=== PATIENT | female | born 1985 | race Two or more races ===

== ENCOUNTER → 2018-03-08 | Outpatient (CLI) | payer MEDICAID ==
--- NOTE | 2018-03-08 16:18 | RADIOLOGY REPORT (SQ) ---
EXAM DESCRIPTION: U/S [id number] TRNABD 1GES W/ODOP COMPLETED DATE/TIME: 03/08/2018 3:57 pm REASON FOR STUDY: Z34.81 ENCOUNTER FOR SUPRVSN OF NORMAL , FIRST TRIMESTER Z34.81 ENCOUNTE R FOR SUPRVSN OF NORMAL , FIRST TRIM COMPARISON: None. TECHNIQUE: Transabdominal static and realtime grayscale images acquired of the pelvis. Additional se lected spectral and color Doppler images recorded. All images stored on PACs. bHCG: Not applicable. CLINICAL DATES: 10 weeks 0 days LIMITATIONS: None. FINDINGS: FETUS: Single Living intrauterine . ULTRASOUND EGA: 11 weeks 1 day ULTRASOUND SHERIF: 09/26/2018 EFW: Not applicable less than 20 weeks. CRL: 4.2 cm FHR: 152 beats per minute. SURVEY: Too early to assess. AMNIOTIC FLUID: Adequate amount. PLACENTA: Not yet developed due to early gestation. SUBCHORIONIC BLEED: No SIZE OF BLEED: Not applicable. UTERUS: No masses or anomalies. 12.8 x 7.9 x 6.4 cm. CERVICAL LENGTH: Not measured. Closed. RIGHT ADNEXA: Normal ovary with normal vascular flow. 3.7 x 2.3 x 2.1 cm. No adnexal free fluid. No adnexal masses. LEFT ADNEXA: Ovary not seen. No adnexal free fluid. No adnexal masses. FREE FLUID: None. OTHER: No other significant finding. IMPRESSION: LIVING INTRAUTERINE . EGA 11 weeks 1 day she area Trimester of : First - 0 to 13 weeks. TECHNICAL DOCUMENTATION: JOB ID: [id number] [place] [employer]- All Rights Reserved rev-09/09 Reading location - IP/workstation name: [email or web address]
== END ==
LOC: RAD 15:30
PROVIDERS: ATTEND Nurse Practitioner
DX: Z34.81 Encounter for supervision of other normal pregnancy, first trimester (principal)
CPT/HCPCS: 76801

== ENCOUNTER 2018-09-05 18:43 | Inpatient (IN) | payer MEDICAID ==
[2018-09-05] MEDS ORDERED: RINGERS SOLUTION,LACTATED 1,000 ML IV PRN (19:09)
[2018-09-05] MEDS ORDERED: RINGERS SOLUTION,LACTATED 1,000 ML IV ONE (19:09)
[2018-09-05 19:29] LABS: ABSOLUTE EOSINOPHILS # (AUTO) 0.1 10^3/uL (0.0-0.6); ABSOLUTE LYMPHOCYTES (AUTO) 1.5 10^3/uL (0.5-4.7); ABSOLUTE MONOCYTES (AUTO) 0.9 10^3/uL (0.1-1.4); ABSOLUTE NEUT (AUTO) 10.9 10^3/uL (1.7-8.2); BASOPHILS % (AUTO) 0.3 % (0-2); EOSINOPHILS % (AUTO) 1.1 % (0-6); HEMATOCRIT 34.9 % (36.0-47.0); HEMOGLOBIN 11.7 g/dL (12.0-15.5); LYMPHOCYTES % (AUTO) 11.2 % (13-45); MEAN CORPUSCULAR HEMOGLOBIN 30.7 pg (27.0-33.4); MEAN CORPUSCULAR HGB CONC 33.5 g/dL (32.0-36.0); MEAN CORPUSCULAR VOLUME 92 fl (80-97); MONOCYTES % (AUTO) 6.7 % (3-13); PLATELET COUNT 170 10^3/uL (150-450); RED BLOOD COUNT 3.81 10^6/uL (3.72-5.28); RED CELL DISTRIBUTION WIDTH 13.7 % (11.5-14.0); SEGMENTED NEUTROPHILS % (AUTO) 80.7 % (42-78); TOTAL CELLS COUNTED % (AUTO) 100 %; WHITE BLOOD COUNT 13.5 10^3/uL (4.0-10.5)
[2018-09-05] MEDS ORDERED: FENTANYL CITRATE INJ/PF 100 MCG/2 ML AMPUL ONE (19:35)
[2018-09-05] MEDS ORDERED: PHENYLEPHRINE HCL INJ/PF 10 MG/1 ML SDV ONE (19:35)
[2018-09-05] MEDS ORDERED: EPHEDRINE SULFATE INJ 50 MG/1 ML AMPULE ONE (19:35)
[2018-09-05] MEDS ORDERED: MISOPROSTOL 0.2 MG TABLET ONE (19:35)
[2018-09-05] MEDS ORDERED: OXYTOCIN 10 UNIT/ML VIAL ONE (19:35)
[2018-09-05] MEDS ORDERED: LIDOCAINE 1% INJ-PF (10 MG/ML) 30 ML SDV ONE (19:36)
[2018-09-05] MEDS ORDERED: OXYTOCIN/NORMAL SALINE 20 UNIT/1,000 ML RTUINJ ONE (19:36)
[2018-09-05] MEDS ORDERED: BUPIVACAINE HCL 0.25 % INJ/PF (2.5 MG/1 ML) 30 ML VIAL ONE (19:36)
[2018-09-05] MEDS ORDERED: FENTANYL/BUPIVACAINE/NS/PF 300 MCG/150 ML RTUINJ EPI ONE (19:36)
[2018-09-05 20:09] LABS: AMORPHOUS SEDIMENT,URINE TRACE /HPF; APPEARANCE,URINE CLOUDY; BILIRUBIN,URINE NEGATIVE (NEGATIVE); COLOR,URINE YELLOW; GLUCOSE, URINE >=500 mg/dL (NEGATIVE); KETONES,URINE NEGATIVE (NEGATIVE); LEUKOCYTE ESTERASE,URINE MODERATE (NEGATIVE); NITRITE,URINE NEGATIVE (NEGATIVE); PROTEIN,URINE 100 mg/dL (NEGATIVE); URINE SPECIFIC GRAVITY 1.008; UROBILINOGEN,URINE NEGATIVE mg/dL (<2.0)
[2018-09-05 20:53] LABS: URINE AMPHETAMINES SCREEN NEGATIVE; URINE BARBITURATES SCREEN NEGATIVE; URINE BENZODIAZEPINES SCREEN NEGATIVE; URINE COCAINE SCREEN NEGATIVE; URINE MARIJUANA (THC) SCREEN NEGATIVE; URINE METHADONE SCREEN NEGATIVE; URINE PHENCYCLIDINE SCREEN NEGATIVE
[2018-09-05] MEDS ORDERED: OXYTOCIN/NORMAL SALINE 20 UNIT/1,000 ML RTUINJ IV PRN (21:26)
--- NOTE | 2018-09-06 01:57 | Admission Physical ---
Datetime Report Generated by CPN: 09/06/2018 01:57 CURRENT ADMISSION Chief Complaint: Suspected Ruptured Membranes Indication for Induction: PROM Admit Impression : Term, Intrauterine ; No Active Labor; Ruptured Membranes Admit Plan: Admit to Unit; Initiate Labor Induction Protocol ALLERGIES Medication Allergies: No Medication Allergies: nickel/Hives (09/05/2018) Latex: No Latex Allergies OBSTETRICAL HISTORY EDC: 09/26/2018 00:00 : 3 Para: 2 Term: 0 : 2 SAB: 0 IAB: 0 Ectopic: 0 Livin Cesareans: 0 VBACs: 0 Multiple Births: 0 Gestational Diabetes: No Rh Sensitization: No Incompetent Cervix: No APARNA: No Infertility: No ART Treatment: No Uterine Anomaly: No IUGR: No Hx Previous C/S: No Macrosomia: No Hx Loss/Stillborn: No PIH: No Hx : No Placenta Previa/Abruption: No Depression/PP Depression: No PTL/PROM: No Post Hemorrhage: No Current Procedures: Ultrasound SEE RECORDS Alcohol: No Marijuana : No Cocaine: No Other Illicit Drugs: No Cigarettes: Never Smoker. [id number] MEDICAL HISTORY Diabetes: No Blood Transfusion: No Pulmonary Disease (Asthma, TB): No Breast Disease: No Hypertension: No Loan Approver Surgery: No Heart Disease: No Hosp/Surgery: No Autoimmune Disorder: No Anesthetic Complications: No Kidney Disease: No Abnormal Pap Smear: No Neuro/Epilepsy: No Psychiatric Disorders: No Other Medical Diseases: No Hepatitis/Liver Disease: No Significant Family History: No Varicosities/Phlebitis: No Trauma/Violence : No Thyroid Dysfunction: No INFECTIOUS HISTORY Gonorrhea: No Genital Herpes: No Chlamydia: No Tuberculosis: No Syphilis: No Hepatitis: No HIV/AIDS Exposure: No Rash or Viral Illness: No HPV: No PHYSICAL EXAM General: Normal HEENT: Normal Neurologic: Normal Thyroid: Normal Heart: Normal Lungs: Normal Breast: Normal Back: Normal Abdomen: Normal Genitourinary Exam: Normal Extremities: Normal DTRs: Normal Pelvic Type: Adequate Vital Signs: Reviewed; Within Normal Limits VAGINAL EXAM Dilatation: 3 Effacement: 50 Station: -3 MEMBRANES Pooling: Positive Membranes: Ruptured Amniotic Fluid Color: Clear FETUS A EGA: 37.1 Monitoring: External US FHR- Baseline: 150 Variability: Moderate 6-25bpm Accelerations: 15X15 Decelerations: None FHR Category: Category I Estimated Weight (gm): 3400 Presentation: Vertex PLANS FOR LABOR AND DELIVERY Labor and Delivery: None Pain Management: Epidural Feeding Preference: Breast Circumcision: N/A INFORMED CONSENT Signature: with User ID: [email or web address]
[2018-09-06] MEDS ORDERED: AMPICILLIN SOD/SULBACTAM 3 GM VIAL ONE (10:11)
[2018-09-06] MEDS ORDERED: ZOLPIDEM TARTRATE 5 MG TABLET PO PRN (10:14)
[2018-09-06] MEDS ORDERED: OXYTOCIN/NORMAL SALINE 20 UNIT/1,000 ML RTUINJ IV PRN (10:14)
[2018-09-06] MEDS ORDERED: GLYCERIN/WITCH HAZEL LEAF 1 EACH MED..WIPE TP PRN (10:14)
[2018-09-06] MEDS ORDERED: PROMETHAZINE HCL INJ 25 MG/1 ML VIAL IV PRN (10:14)
[2018-09-06] MEDS ORDERED: NA PHOS,M-B/NA PHOS,DI-BA (ADULT) 133 ML ENEMA PR PRN (10:14)
[2018-09-06] MEDS ORDERED: MEASLES,MUMPS&RUBELLA VACC/PF 0.5 ML VIAL SUBCUT PRN (10:14)
[2018-09-06] MEDS ORDERED: DIPH/PERTUSS(ACELL)/TETANUS VAC/PF 0.5 ML SYR (>=10YO) IM PRN (10:14)
[2018-09-06] MEDS ORDERED: MAGNESIUM HYDROXIDE SUSP 30 ML UDCUP PO PRN (10:14)
[2018-09-06] MEDS ORDERED: PROMETHAZINE HCL 25 MG SUPP.RECT PR PRN (10:14)
[2018-09-06] MEDS ORDERED: ACETAMINOPHEN WITH CODEINE #3 TABLET PO PRN (10:14)
[2018-09-06] MEDS ORDERED: DIPHENHYDRAMINE HCL 25 MG CAPSULE PO PRN (10:14)
[2018-09-06] MEDS ORDERED: BENZOCAINE/MENTHOL AEROSOL SPRAY 56 ML TOP PRN (10:14)
[2018-09-06] MEDS ORDERED: DIBUCAINE 1% OINTMENT 56 GM TP PRN (10:14)
[2018-09-06] MEDS ORDERED: PROMETHAZINE HCL 25 MG TABLET PO PRN (10:14)
[2018-09-06] MEDS ORDERED: ACETAMINOPHEN 325 MG TABLET PO PRN (10:14)
[2018-09-06] MEDS ORDERED: PSEUDOEPHEDRINE HCL 30 MG TABLET PO PRN (10:14)
[2018-09-06] MEDS ORDERED: AMPICILLIN SOD/SULBACTAM 3 GM VIAL IV SCH (12:00)
[2018-09-06] MEDS: IBUPROFEN 800 MG TABLET PO SCH ×2 (14:10→21:57)
[2018-09-06] MEDS: AMPICILLIN SODIUM/SULBACTAM NA 3 GM in NORMAL SALINE 100 ML IV SCH ×2 (15:19→21:58)
[2018-09-06] MEDS: DOCUSATE SODIUM 100 MG CAPSULE PO SCH (17:29)
[2018-09-06] MEDS ORDERED: FERROUS SULFATE 325 MG TABLET PO SCH (18:00)
[2018-09-06] MEDS ORDERED: AMPICILLIN SODIUM/SULBACTAM NA 3 GM in NORMAL SALINE 100 ML IV SCH (18:00)
[2018-09-06] MEDS: ACETAMINOPHEN WITH CODEINE #3 TABLET PO PRN (20:18)
[2018-09-06] MEDS: FAMOTIDINE 20 MG TABLET PO SCH (21:57)
[2018-09-07] MEDS: AMPICILLIN SODIUM/SULBACTAM NA 3 GM in NORMAL SALINE 100 ML IV SCH (03:02)
[2018-09-07] MEDS: IBUPROFEN 800 MG TABLET PO SCH ×3 (05:12→22:13)
[2018-09-07 06:59] LABS: HEMATOCRIT 34.2 % (36.0-47.0); HEMOGLOBIN 11.5 g/dL (12.0-15.5); MEAN CORPUSCULAR HEMOGLOBIN 31.3 pg (27.0-33.4); MEAN CORPUSCULAR HGB CONC 33.7 g/dL (32.0-36.0); MEAN CORPUSCULAR VOLUME 93 fl (80-97); PLATELET COUNT 164 10^3/uL (150-450); RED BLOOD COUNT 3.69 10^6/uL (3.72-5.28)
[2018-09-07] MEDS: SENNOSIDES/DOCUSATE 8.6-50 MG 1 EACH TABLET PO SCH (09:44)
[2018-09-07] MEDS: DOCUSATE SODIUM 100 MG CAPSULE PO SCH ×2 (09:44→17:32)
[2018-09-07] MEDS: FAMOTIDINE 20 MG TABLET PO SCH ×3 (09:44→22:13)
[2018-09-07] MEDS: PRENATAL VITAMIN W DHA CAPSULE PO SCH (09:44)
[2018-09-07] MEDS: ACETAMINOPHEN WITH CODEINE #3 TABLET PO PRN (09:55)
--- NOTE | 2018-09-07 11:59 | PDOC PROGRESS REPORT ---
Subjective-OB Progress Note for:: 09/07/18 Subjective: reports bleeding slowing, pain controlled with current meds. denies needs Physical Exam (OB) Vital Signs: Temp Pulse Resp BP Pulse Ox 97.4 F 80 18 111/73 97 09/07/18 08:11 09/07/18 08:11 09/07/18 08:11 09/07/18 08:11 09/07/18 08:11 Intake & Output 09/06/18 09/07/18 09/08/18 06:59 06:59 06:59 Intake Total 300 Balance 300 Weight 79 kg - Abdomen Description: Soft Hernia Present: No Fundal Description: Firm, Midline Fundal Height: u/u - u/2 - Abdominal Distension: No distension Tenderness: Nontender - Extremities Lower extremities: Josey's sign - neg Calf: Normal, Nontender Objective-Diagnostic Laboratory: 09/07/18 06:44 09/07/18 06:44 WBC 15.0 H RBC 3.69 L Hgb 11.5 L Hct 34.2 L MCV 93 MCH 31.3 MCHC 33.7 RDW 14.0 Plt Count 164 Assessment and Plan(PN) - Assessment and Plan (1) Vaginal delivery Is this a current diagnosis for this admission?: Yes - Time Spent with Patient Time with patient: Less than 15 minutes Medications reviewed and adjusted accordingly: Yes - Disposition Anticipated Discharge: Home Within: within 24 hours
[2018-09-08] MEDS: IBUPROFEN 800 MG TABLET PO SCH ×2 (06:24→13:22)
[2018-09-08 09:17] VITALS: BP 108/71
[2018-09-08] MEDS: SENNOSIDES/DOCUSATE 8.6-50 MG 1 EACH TABLET PO SCH (09:25)
[2018-09-08] MEDS: DOCUSATE SODIUM 100 MG CAPSULE PO SCH (09:25)
[2018-09-08] MEDS: PRENATAL VITAMIN W DHA CAPSULE PO SCH (09:25)
[2018-09-08] MEDS: FAMOTIDINE 20 MG TABLET PO SCH (09:25)
--- NOTE | 2018-09-08 09:59 | PDOC DISCHARGE SUMMARY ---
Final Diagnosis Discharge Date: 09/08/18 - PP Day #2, doing well,B negative, Rubella immune, bottle feeding, pt had fever and given Unasyn x 3 doses. Pt denies fever, chills, malaise currently. - Final Diagnosis (2) Chorioamnionitis, delivered, current hospitalization Is this a current diagnosis for this admission?: Yes (3) History of delivery Is this a current diagnosis for this admission?: Yes (4) Polyhydramnios in third trimester Is this a current diagnosis for this admission?: Yes (5) Retained placenta w/o hemorrhage, delivered, current hospitalization Is this a current diagnosis for this admission?: Yes (6) Spontaneous rupture of amniotic membranes Is this a current diagnosis for this admission?: Yes Discharge Data - Discharge Medication Prescriptions: Ibuprofen [Motrin 800 mg Tablet] 800 mg PO Q8 #60 tablet Home Medications: Vit/Dha [ Multi + Dha Capsule] 1 cap PO DAILY 09/05/18 Ibuprofen [Motrin 800 mg Tablet] 800 mg PO Q8 #60 tablet 09/08/18 Reason(s) for Admission: Onset of Labor Procedures: Ultrasound Intrapartum Procedure(s): Spontaneous Vaginal Delivery Complication(s): Pelvic Infection - Diagnosis Test Laboratory: Temp Pulse Resp BP Pulse Ox 97.5 F 82 16 105/62 100 09/08/18 08:56 09/08/18 08:56 09/08/18 08:56 09/08/18 08:56 09/08/18 08:56 09/05/18 09/05/18 09/07/18 18:55 19:15 06:44 RBC 3.81 3.69 L Hgb 11.7 L 11.5 L Hct 34.9 L 34.2 L Urine Opiates Screen NEGATIVE - Discharge information/Instructions Discharge Activity: Activity As Tolerated, No Lifting Over 10 Pounds, Pelvic Rest Discharge Diet: As Tolerated, Regular Disposition: HOME, SELF-CARE Follow up with: [facility] in: 4, Weeks - fever precautions reviewed, call the office if experiencing fever
--- NOTE | 2018-09-12 16:36 | Delivery Summary ---
Del Sum A-C Datetime Report Generated by CPN: 09/12/2018 16:36 DELIVERY PERSONNEL DELIVERY PERSONNEL: [id number] Delivery Doctor:: Guadalupe Lopez CNM Nurse Water And [employer] Helper Certified:: Guadalupe Lopez CNM Labor and Delivery Nurse:: Rosana Mathis RNC Labor and Delivery Nurse:: JESÚS Hernandez Fire Information Officer/ENROLLMENT NURSE: Anabella Mojica, DOCUMENT REVIEW SPECIALIST Fire Information Officer/ENROLLMENT NURSE: Danitajose Clifton, DOCUMENT REVIEW SPECIALIST MATERNAL INFORMATION Delivery Anesthesia: Epidural Estimated Blood Loss (ml): 200 Maternal Complications: Maternal Fever Provider Comments: pt was pushing on my arrival to unit but baby was still pretty high and mother was unable to push effectively. It was decided that she should labor down [id number] then we began pushing again and with much coaching pt went on to deliver a viable baby girl. Baby delivered with compound left arm and right arm cord. Baby with vigorous respiratory effort and cry with tactile stimulation and placed on maternal abdomen. Cord allowed to stop pulsating then clamped x2 and cut by FOB. Small clots out and cord evulsed- unable to retrieve placenta manually and Dr. Engel called into room for manual removal. Placenta removed by Dr. Engel intact, marginal insertion and additional placenta lobes noted. Vaginal and perineal inspection revealed no lacerations, fundus firm @ u, bleeding stable. Mother and baby skin to skin and bonding at this time. LABOR SUMMARY EDC: 09/26/2018 00:00 No. Babies in Womb: 1 Attempted: Yes Labor Anesthesia: Epidural LABOR INFORMATION Reason for Induction: Not Applicable Onset of Labor: 09/05/2018 18:00 Complete Dilatation: 09/06/2018 06:24 Oxytocin: Augmentation Group B Beta Strep: negative Antibiotics # of Doses: 0 Steroids Given: None Reason Steroids Not Administered: Not Applicable MEMBRANES Membranes Rupture Method: Spontaneous Rupture of Membranes: 09/05/2018 18:00 Length of Rupture (hr): 15.97 Amniotic Fluid Color: Clear Amniotic Fluid Amount: Moderate Amniotic Fluid Odor: None STAGES OF LABOR Stage 1 hr: 12 Stage 1 min: 24 Stage 2 hr: 3 Stage 2 min: 34 Stage 3 hr: 0 Stage 3 min: 11 Total Time in Labor hr: 16 Total Time in Labor min: 9 VAGINAL DELIVERY Episiotomy: None Laceration #1: None Other Laceration: n/a Laceration Repair: Not Applicable Sponge Count Correct: N/A; Vaginal Sweep Performed Sharps Count Correct: N/A CSECTION DELIVERY Primary Indication: N/A Secondary Indication: N/A CSection Incidence: N/A Labor: N/A Elective: N/A CSection Incision: N/A BABY A INFORMATION Delivery Date/Time: 09/06/2018 09:58 Method of Delivery: Vaginal Born in Route : No : N/A Forceps: N/A Vacuum Extraction: N/A Shoulder Dystocia : No PRESENTATION/POSITION BABY A Presentation: Cephalic Cephalic Presentation: Vertex Vertex Position: Left Occipital Anterior Breech Presentation: N/A PLACENTA INFORMATION BABY A Placenta Delivery Time : 09/06/2018 10:09 Placenta Method of Delivery: Manual Removal Placenta Status: Delivered SCORES BABY A Heart Rate 1 min: >100 bpm Resp Effort 1 min: Slow, Irregular Reflex Irritability 1 min: Cough or Sneeze or Pulls Away Muscle Tone 1 min: Active Motion Color 1 min: Body [place], Extremities Blue Resuscitation Effort 1 min: Tactile Stimulation SCORE 1 MIN: 8 Heart Rate 5 min: >100 bpm Resp Effort 5 min: Good Cry Reflex Irritability 5 min: Cough or Sneeze or Pulls Away Muscle Tone 5 min: Active Motion Color 5 min: Body [place], Extremities Blue Resuscitation Effort 5 min: N/A SCORE 5 MIN: 9 Resuscitation Effort 10 min: N/A INFANT INFORMATION BABY A Gestational Age at Delivery: 37.1 Gestational Status: Early Term- 37- 38.6 Weeks Outcome : Liveborn Infant Condition : Stable Sex: Female IDENTIFICATION BABY A Infant Verification Date/Time: 09/06/2018 10:46 ID Band Number: [id number] Mother's Name Verified: Yes Infant RN Verifying : D Bellavance RN/R Evelia RN WEIGHT/LENGTH BABY A Infant Birthweight (gm): 3180 Weight (lb): 7 Infant Weight (oz): 0 Infant Length (in): 19.75 Infant Length (cm): 50.17 CORD INFORMATION BABY A No. Cord Vessels: 3 Nuchal Cord : N/A Nuchal Cord- Other: cord around arm Cord Blood Taken: Yes-For Eval (Mom's Blood Type - or O+) ASSESSMENT BABY A Skin to Skin: Yes Skin to Skin Time (min): 15 Skin to Skin Time (min): 15 BABY B INFORMATION : N/A SIGNATURES Assignment: Mirella Engel MD Signature: with User ID: [email or web address] : with User ID: [email or web address]
== END 2018-09-08 14:37 | disposition home or self-care (01) | DRG 805 ==
LOC: LC 18:43 → LR 19:11 → 2S 09-06 14:04
PROVIDERS: ADMIT Obstetrics & Gynecology; ATTEND Obstetrics & Gynecology
PROC: 10E0XZZ Delivery of Products of Conception, External Approach (ICD-10-PCS; principal; 2018-09-06)
DX: O40.3XX0 Polyhydramnios, third trimester, not applicable or unspecified (principal); O41.1230 Chorioamnionitis, third trimester, not applicable or unspecified; Z37.0 Single live birth; O75.2 Pyrexia during labor, not elsewhere classified; O42.92 Full-term premature rupture of membranes, unspecified as to length of time between rupture and onset of labor; Z3A.37 37 weeks gestation of pregnancy; O32.6XX0 Maternal care for compound presentation, not applicable or unspecified; O69.89X0 Labor and delivery complicated by other cord complications, not applicable or unspecified
CPT/HCPCS: 36415; 59025; 80307; 81001; 85025; 85027; 86592; 86850; 86870; 86900; 86901; 88307; J0295; J2370; J2590; J3010; J3490; J7050